=== PATIENT | male | born 1975 | race Caucasian/White ===

== ENCOUNTER 2019-01-03 19:37 | Inpatient (IN) ==
[2019-01-03 20:14] LABS: BASO# 0.07 X1000 (0.0-0.2); BASO% 0.5 % (0.0-0.8); EOS# 0.07 X1000 (0.0-0.7); EOS% 0.5 % (0.0-10.0); HEMATOCRIT 45.4 % (42.0-52.0); HEMOGLOBIN 15.6 g/dL (14.0-18.0); IMM GRAN# 0.04 X1000 (0.0-0.04); IMM GRAN% 0.3 % (0.0-0.5); LYMPH# 3.01 X1000 (1.2-3.4); LYMPH% 23.4 % (20.5-51.1); MCH 31.9 PG (27-31); MCHC 34.4 g/dL (33-37); MCV 92.8 FL (81-99); MONO# 1.03 X1000 (0.11-0.59); MPV 9.3 FL (7.4-10.4); NEUT# 8.64 X1000 (1.4-6.5); NEUT% 67.3 % (42.2-75.2); PLT 317 X1000 (130-400); RBC 4.89 XMIL (4.7-6.1); RDW 12.4 % (11.5-14.5); WBC 12.86 X1000 (4.8-10.8)
[2019-01-03] MEDS ORDERED: ROCEPHIN 2 GM in NS 50 ML IV ONE (20:19)
[2019-01-03] MEDS ORDERED: NS 500 ML IV ONE (20:19)
[2019-01-03] MEDS ORDERED: ZITHROMAX 500 MG/NS 500 MG/250 ML IVPB IV ONE (20:19)
--- NOTE | 2019-01-03 20:31 | Diag Imaging Result Doc PS360 ---
CHEST-2 VIEWS - 01/03/2019 INDICATION: sob COMPARISON: None FINDINGS: There is significant cardiomegaly and pulmonary vascular congestion. There is some interstitial pulmonary edema with curly B lines bilaterally. There are trace bilateral pleural effusions. IMPRESSION: Cardiomegaly, interstitial pulmonary edema, trace pleural effusions. Electronically signed by Erik Ortega 01/03/2019 8:29 PM
[2019-01-03 20:34] LABS: AGAP 12; ALB/GLOB RATIO 1.2; ALBUMIN 3.6 g/dL (3.5-5.0); ALKALINE PHOSPHATASE 86 U/L (32-122); BUN 14 mg/dL (8-22); CALCIUM 8.8 mg/dL (8.8-10.2); CHLORIDE 101 mmol/L (98-107); CK PROFILE 180 U/L (24-204); COSMO 275; CREATININE 1.2 mg/dL (0.7-1.2); ESTIMATED GFR > 60; GLUCOSE 111 mg/dL (70-104); GOT 32 U/L (10-34); GPT 27 U/L (10-44); POTASSIUM 5.1 mmol/L (3.5-5.1); SODIUM 137 mmol/L (136-145); TCO2 24 mmol/L (25-35); TOTAL BILIRUBIN 0.61 mg/dL (0.20-1.00); TOTAL PROTEIN 6.5 g/dL (6.3-8.3)
[2019-01-03] MEDS ORDERED: LASIX IV ONE ×2 (20:51→21:22)
[2019-01-03] MEDS ORDERED: LANOXIN IV ONE (21:23)
[2019-01-03] MEDS ORDERED: TYLENOL PO PRN (22:00)
[2019-01-03] MEDS ORDERED: ZOFRAN IV PRN (22:00)
[2019-01-03] MEDS ORDERED: LASIX 100 MG in NS 90 ML IV SCH (22:30)
[2019-01-03] MEDS: DUONEB (A & A) INH SCH (22:35)
--- NOTE | 2019-01-03 22:51 | HISTORY AND PHYSICAL ---
REASON FOR ADMISSION: One-week history of shortness of breath. Mr. Jurgen Coe is a 43-year- old, man, with past medical history of hypertension and possible borderline chronic systolic heart failure. He reports that for the last 10 days he has been having a dry chronic cough which has culminated in some mild hemoptysis over a few days ago. He also developed simultaneous one-week history of progressive shortness of breath initially with exertion, but the last 2 days at rest. Complains of PND orthopnea for the last 2 days but denies any antecedent chest pain, fever, chills. No leg swelling, but he was surprised that he had gained 5 pounds over the last 24 hours. He denies any easy satiety, abdominal distention, or facial swelling. He denies any change in his home medications. He states that 2 days ago he thought he had bronchitis and sought care in the clinic. He was given Keflex and since then he has been having nonbloody diarrhea intermittently. No abdominal pain. No complaints. REVIEW OF SYSTEMS: Twelve system was done. Positive findings per HPI. ALLERGIES: No allergies. HOME MEDICATIONS: Have not been officially reconciled. FAMILY HISTORY: Notable for diabetes and lung cancer in first-degree relatives. SOCIAL HISTORY: Smokes half pack a day and drinks 2 shots of vodka at night. No illicit drug use. PAST MEDICAL HISTORY: History also includes Crohn disease which is in remission. SURGICAL HISTORY: No surgical history. He has had multiple colonoscopies, however. LABORATORY WORK: White count 12,000. H H 15 and 45, platelets 317,000. Normal differential. BUN is 14, creatinine 1.2. Troponin is negative. ProBNP is 2000. Lactate is normal. Chest film showed cardiomegaly with history of pulmonary edema and trace pleural effusions. EKG not available for review at this time. PHYSICAL EXAMINATION: VITAL SIGNS: Blood pressure 119/89, heart rate 120, temperature is 98.7 degrees, respiration is 20. GENERAL: He is a middle-aged man, not in acute distress. He is A and O x3. Normal mood and affect. HEENT: Head is normocephalic, atraumatic. Eyes, NIKUNJ, EOMI. ENT exam is grossly normal. NECK: Supple. No JVD appreciated, but mild hepatojugular reflux. No bruit. No thyromegaly. CHEST: Bilateral crepitations diffusely in both lung braga. No wheezes and good entry in both lung braga. CARDIOVASCULAR: 1st, 2nd and 3rd heart sounds are heard. No murmurs appreciated. Rhythm is regular. ABDOMEN: Full, soft, nontender. No mass, megaly, bowel sounds are hyperactive. EXTREMITIES: The patient's distal pulses volumes are diminished in all extremities distally. Rhythm is regular. Symmetrical. No edema, clubbing or cyanosis. NEUROLOGIC: No gross focal deficits. SKIN: Intact. No breakdown, lesions. No erythema. MUSCULOSKELETAL: Exam is grossly normal. ASSESSMENT AND PLAN: 1. Acute systolic heart failure. 2. Hypertensive heart disease. 3. Tobacco use. 4. Crohn disease in remission. PLAN: Patient will be admitted and aggressive diuresis started. Gave the patient a 1-time dose of digoxin to slow heart rate down. We will consider starting patient on Entresto to decrease hospitalization and improve mortality. Low-dose beta blockers will be started and Aldactone will be started. We will consult Dr. Octaviano Harris, seen in the a.m. and echo has also been ordered. Dietary consult will be made. Smoking cessation was discussed. We will start on NicoDerm patch. cc: Meliza Lance MD [facility]
[2019-01-03] MEDS: ENTRESTO 24 MG-26 MG TABLET PO SCH (23:08)
[2019-01-03] MEDS: LOVENOX SUBQ SCH (23:08)
[2019-01-03] MEDS: COREG PO SCH (23:08)
[2019-01-04] MEDS: DUONEB (A & A) INH SCH ×4 (03:05→21:05)
[2019-01-04 06:08] LABS: CALCIUM 8.5 mg/dL (8.8-10.2); CREATININE 1.3 mg/dL (0.7-1.2); MAGNESIUM 1.8 mg/dL (1.5-2.7); POTASSIUM 3.8 mmol/L (3.5-5.1)
--- NOTE | 2019-01-04 07:17 | EKG Report ---
Test Performed on : 01/03/2019 7:43:10 PM Test Reason : sob Blood Pressure : / mmHG Vent. Rate : 131 BPM Atrial Rate : 131 BPM P-R Int : 136 ms QRS Dur : 084 ms QT Int : 314 ms P-R-T Axes : 056 085 074 degrees QTc Int : 463 ms Sinus tachycardia. Possible Left atrial enlargement Left ventricular hypertrophy Abnormal ECG When compared with ECG of 11-JUN-2015 15:52, Vent. rate has increased BY 56 BPM T wave inversion now evident in Lateral leads Unconfirmed Result
[2019-01-04] MEDS ORDERED: MAGNESIUM SULFATE 2 GM/S.W.I. 2 GM/50 ML IVPB IV ONE (08:01)
[2019-01-04] MEDS: LANOXIN PO SCH (09:05)
[2019-01-04] MEDS: ENTRESTO 24 MG-26 MG TABLET PO SCH ×2 (09:05→21:08)
[2019-01-04] MEDS: ALDACTONE PO SCH (09:05)
[2019-01-04] MEDS: COREG PO SCH ×2 (09:05→21:08)
[2019-01-04] MEDS: NICODERM PATCH TD SCH (09:06)
--- NOTE | 2019-01-04 09:35 | CARDIOLOGY CONSULTATION ---
DATE: 01/04/2019 CHIEF COMPLAINT ON PRESENTATION: Shortness of breath. HISTORY OF PRESENT ILLNESS: Mr. Coe is a 43-year-old, white male with a history of systolic heart failure. Ejection fractions in the 40 to 45 percent range most recently. For the last week to week and a half or so, he has had some mild dry cough, which he began some antibiotics for that he had at home. He had some brief improvement in the symptoms, but eventually they worsened. It has resulted in shortness of breath with talking, as well as minimal activity. He reports some weight gain but denies any lower extremity edema. He has been compliant with his heart failure medications. He ultimately was seen in a walk-in clinic. He was referred to the ER and found to have a suggestions of heart failure based on laboratories. PAST MEDICAL HISTORY: Significant for a presumed nonischemic cardiomyopathy based on stress testing. Most recent EF's in the 40 to 45 percent range. SOCIAL HISTORY: He drinks alcohol; around 2 shots of vodka at night. Smokes a half pack of cigarettes per day. No illicit drugs. FAMILY HISTORY: Father has a history of hypertension, hyperlipidemia, and diabetes. Mother with lymphoma approximately 7 years ago. REVIEW OF SYSTEMS: A 10-system review of systems is negative, except for those things mentioned in HPI. PHYSICAL EXAMINATION: Vital Signs: He is afebrile. His heart rate initially on presentation was in the 130s; subsequently has trended down into the 90s. His most recent blood pressure is 96/69. Presenting blood pressure was 117/84. His I's and O's have been significantly negative with a net negative output of 3.4 liters. General: He is in no acute distress. He is a thin white male, pleasant. HEENT: Oropharynx is moist. Normal dentition. His eye examination shows pink conjunctivae, white sclerae. Neck: Examination shows no obvious thyromegaly or thyroid tenderness. Cardiovascular: He sounds to be in a regular rate and rhythm. He has no murmurs. He has no S3. He has no lower extremity edema. Chest: Exam sounds clear. He has no increased work of breathing. Abdomen: Soft, nontender, nondistended. He has no obvious organomegaly. Skin exam: Warm and dry throughout without any rashes. Neurological: He is moving all extremities well. No lateralizing deficits. Psychiatric: Alert, oriented, pleasant. Normal mood and affect. PERTINENT DATA: His EKG shows sinus tachycardia at 130 beats per minute. He has some evidence for a left atrial enlargement, as well as left ventricular hypertrophy. No ischemic changes. No Q-waves. His chest x-ray demonstrates cardiomegaly with interstitial pulmonary edema and very minor effusions. His white count yesterday was 12.8, hematocrit 45, platelet count 317. His sodium is 143, potassium 3.8, BUN 14 and creatinine is 1.3. His Mag level was 1.8. His proBNP yesterday was 2073. Cardiac enzymes negative. His TSH is 1.9. Echocardiogram reviewed by me demonstrates a significant reduction in EF. He has a dilated left ventricle. His ejection fraction is on the order of 15%. He has findings suggestive of a bicuspid valve, but it appears to open quite well with no evidence of significant insufficiency or stenosis. ASSESSMENT: Mr. Coe is a 43-year-old, white male with a history of a presumed nonischemic cardiomyopathy based on stress testing. PLAN: His ejection fraction appears worse than previous. I agree with the hospitalist attempts to initiate Entresto. We will continue him on the spironolactone and Coreg. I will stop the Lasix as he has been diuresing quite aggressively, and switch him over to intermittent IV dosing We will give him a 20 mg IV dose later on today. I will replete his magnesium and recheck his laboratories in the morning. Hopefully, we could consider discharge in the morning. I would hold him 1 more day for titration of medications. I will have the dietitian see him. cc: MD DYLAN Dover
--- NOTE | 2019-01-04 09:54 | Diag Imaging Result Doc PS360 ---
CHEST-2 VIEWS - 01/04/2019 INDICATION: CHF COMPARISON: 01/03/2019 FINDINGS: Stable cardiomegaly and significant pulmonary vascular congestion. There has been decrease in the bilateral pleural effusions. No new infiltrates or edema. There has been decrease in the patchy linear infiltrates or atelectasis in the lung bases. IMPRESSION: Improved aeration of the lung bases. Electronically signed by Erik Ortega 01/04/2019 9:52 AM
--- NOTE | 2019-01-04 11:13 | ECHO REPORT ---
ORDER DATE: 01/03/2019 INDICATION: Congestive heart failure. FINDINGS: 1. The right atrium appears normal in size. 2. Trace tricuspid regurgitation. RV systolic pressure of 34. 3. Normal RV size with moderate reduction in RV systolic function. 4. Mild pulmonic insufficiency. 5. Mild to moderate left atrial enlargement with a volume index of 35. 6. No mitral valve prolapse. Mild mitral regurgitation. No evidence of mitral stenosis. 7. Left ventricle is dilated with an end-diastolic dimension of 6.2 cm. Normal wall thicknesses with a posterior and interventricular septal wall thickness of 0.7 and 0.9 cm respectively. Severe reduction in LV systolic function with an estimated EF in the 15 to 20 percent range with severe global hypokinesis. 8. Aortic valve opens well. It is a bicuspid valve. Trace insufficiency is noted. No significant stenosis is identified. 9. The aorta appears normal in visualized segments. There were images obtained from the suprasternal notch, which are not adequate enough. 10. No pericardial effusion is identified. cc: MD Meliza Dover MD
[2019-01-04] MEDS: NEURONTIN PO SCH ×2 (14:38→21:08)
[2019-01-04] MEDS ORDERED: LASIX IV ONE ×2 (15:00)
[2019-01-04 17:16] LABS: AGAP 14; BUN 17 mg/dL (8-22); CALCIUM 8.3 mg/dL (8.8-10.2); CHLORIDE 95 mmol/L (98-107); COSMO 275; CREATININE 1.2 mg/dL (0.7-1.2); ESTIMATED GFR > 60; GLUCOSE 130 mg/dL (70-104); POTASSIUM 3.8 mmol/L (3.5-5.1); SODIUM 136 mmol/L (136-145); TCO2 27 mmol/L (25-35)
--- NOTE | 2019-01-04 18:52 | PROGRESS NOTE ---
DATE: 01/04/2019 SUBJECTIVE: This patient is resting comfortably in bed. He is not complaining of chest pain or shortness of breath. His ejection fraction went from 40 to 45 percent to 15 to 20 percent. It has dropped significantly. It is presumed that this is non-ischemic cardiomyopathy based on stress testing. OBJECTIVE: Vital Signs: Temperature 98.6 degrees, pulse 104, respiratory rate 16, blood pressure 93/75, oxygen saturation 100% on room air. HEENT: Head normocephalic, no trauma. PERRLA. Neck: Supple. No JVD. No masses. Central trachea. Chest: Clear to auscultation. No wheezing. No rales. Cardiovascular: Regular rate and rhythm. He has a 3rd sound. Extremities: No edema, no clubbing, no cyanosis. Neurological examination: The patient is alert and oriented x3. No focal deficits. LABORATORY: Sodium 136, potassium 3.8, chloride 95, bicarbonate 27, BUN 17, creatinine 1.2, glucose 130, calcium 8.3, magnesium 1.8. ProBNP 1730. TSH 1.99. ASSESSMENT AND PLAN: 1. Congestive heart failure exacerbation. His ejection fraction has decreased significantly, now around 15 to 20 percent. We will continue with the same management. It looks like in the morning he will have a cardiac cath. 2. Known likely nonischemic cardiomyopathy. We will continue with same management. Cardiology on board. 3. History of Crohn disease, which is in remission. cc: Raji Arndt MD
[2019-01-04] MEDS: LOVENOX SUBQ SCH (21:08)
[2019-01-05] MEDS: DUONEB (A & A) INH SCH ×4 (03:05→21:18)
[2019-01-05 05:50] LABS: BASO# 0.06 X1000 (0.0-0.2); BASO% 0.5 % (0.0-0.8); EOS# 0.22 X1000 (0.0-0.7); HEMATOCRIT 50.9 % (42.0-52.0); HEMOGLOBIN 17.5 g/dL (14.0-18.0); IMM GRAN# 0.02 X1000 (0.0-0.04); IMM GRAN% 0.2 % (0.0-0.5); LYMPH# 2.53 X1000 (1.2-3.4); LYMPH% 23.2 % (20.5-51.1); MCH 31.3 PG (27-31); MCHC 34.4 g/dL (33-37); MCV 90.9 FL (81-99); MONO# 1.27 X1000 (0.11-0.59); MONO% 11.6 % (1.7-9.3); MPV 9.5 FL (7.4-10.4); NEUT# 6.81 X1000 (1.4-6.5); NEUT% 62.5 % (42.2-75.2); PLT 271 X1000 (130-400); RDW 12.4 % (11.5-14.5); WBC 10.91 X1000 (4.8-10.8)
[2019-01-05 06:19] LABS: AGAP 14; BUN 17 mg/dL (8-22); CALCIUM 8.5 mg/dL (8.8-10.2); CHLORIDE 98 mmol/L (98-107); CHOLESTEROL 141 mg/dL (0-200); COSMO 276; ESTIMATED GFR > 60; GLUCOSE 105 mg/dL (70-104); HDL 33 mg/dL (35-55); LDL 82 mg/dL; SODIUM 137 mmol/L (136-145); TCO2 25 mmol/L (25-35); TRIGLYCERIDES 131 mg/dL (39-160); VLDL 26 mg/dL
--- NOTE | 2019-01-05 06:32 | EKG Report ---
Test Performed on : 01/05/2019 06:22:49 AM Test Reason : [facility] SCHEDULED FOR AM Blood Pressure : / mmHG Vent. Rate : 101 BPM Atrial Rate : 101 BPM P-R Int : 148 ms QRS Dur : 094 ms QT Int : 374 ms P-R-T Axes : 049 041 053 degrees QTc Int : 484 ms Sinus tachycardia. with occasional premature ventricular complexes. Possible Left atrial enlargement Left ventricular hypertrophy T wave abnormality, consider lateral ischemia Abnormal ECG When compared with ECG of 03-JAN-2019 19:43, (Unconfirmed) premature ventricular complexes. are now present Nonspecific T wave abnormality now evident in Inferior leads Confirmed by Hollie VÁSQUEZ, Kermit Arevalo ([id number]) on 01/05/2019 9:45:19 AM
[2019-01-05] MEDS ORDERED: HEPARIN 1000 UNITS/NS 2,000 UNIT/1,000 ML IV.SOLN ONE (07:12)
[2019-01-05 07:13] LABS: INR 0.99; PROTIME 13.9 Seconds (11.0-16.0)
[2019-01-05] MEDS: ENTRESTO 24 MG-26 MG TABLET PO SCH ×3 (07:20→21:22)
[2019-01-05] MEDS: COREG PO SCH ×3 (07:20→21:22)
[2019-01-05] MEDS: NEURONTIN PO SCH ×4 (07:20→21:22)
[2019-01-05] MEDS: LANOXIN PO SCH ×2 (07:20→09:00)
[2019-01-05] MEDS: POTASSIUM CHLORIDE 20 MEQ/SWI 20 MEQ/100 ML IVPB IV SCH ×2 (07:21→10:01)
[2019-01-05] MEDS ORDERED: ANESTHESIA PB SET 88 IN 5742 ONE (07:38)
[2019-01-05] MEDS ORDERED: NS 1,000 ML ONE (07:38)
[2019-01-05] MEDS ORDERED: CLAVE TWINSITE 32 IN 11959 ONE (07:38)
[2019-01-05] MEDS ORDERED: VERSED ONE (07:42)
--- NOTE | 2019-01-05 08:53 | CARDIAC CATH REPORT ---
PROCEDURE NAME: - INDICATION: Systolic heart failure. PROCEDURES PERFORMED: 1. Left heart catheterization. 2. Selective coronary angiography. PROCEDURE IN DETAIL: Mr. Coe was brought to the catheterization laboratory in a fasting state. Informed consent was obtained. Prepped in the usual fashion. He was anesthetized over the right radial artery after Kermit's test proved adequate. A 5-[place] sheath was placed via true Seldinger technique. Radial cocktail was administered. Catheters were introduced. Hemodynamic measurements were made in the ascending thoracic aorta. Coronary angiography was performed in multiple views using JL3.5 and JR4 diagnostic catheters. Left heart catheterization was performed using the JR4. At the conclusion of the procedure, all sheaths and catheters were removed. TR band was left inflated at 9 mL of air with good capillary refill, good hemostasis. There were 55 mL of IV contrast and 5-10 mL of blood loss. FINDINGS: 1. The left main originates from the left coronary cusp and appears normal. 2. Left anterior descending and circumflex vessels both originate from the left main. They appear angiographically normal throughout their course. 3. The right coronary originates from the right coronary cusp. It is a large, dominant, normal vessel. 4. His aortic blood pressure is 74/48 with a mean of 58. Left ventricle pressure is 77/8 with an LVEDP of 18. ASSESSMENT: Mr. Coe is a 43-year-old male with a history of heart failure. PLAN: His coronary arteries appear normal. He is somewhat hypotensive. Currently, we will likely decrease his Entresto down to once daily. He is receiving some potassium for supplementation. We will continue him on his other medications as tolerated. Tentative plan is to proceed with ICD implantation as an inpatient after transfer to [facility]. He has diuresed well this hospitalization and his BNP is much better although LVEDP is still somewhat elevated. cc: Octaviano Harris MD [facility]
--- NOTE | 2019-01-05 08:54 | EKG Report ---
Test Performed on : 01/05/2019 08:46:31 AM Test Reason : post cath Blood Pressure : / mmHG Vent. Rate : 101 BPM Atrial Rate : 101 BPM P-R Int : 150 ms QRS Dur : 080 ms QT Int : 364 ms P-R-T Axes : 061 065 036 degrees QTc Int : 471 ms Sinus tachycardia. Possible Left atrial enlargement Left ventricular hypertrophy Nonspecific T wave abnormality Abnormal ECG When compared with ECG of 05-JAN-2019 06:22, (Unconfirmed) premature ventricular complexes. are no longer present Confirmed by Hollie VÁSQUEZ, Kermit Arevalo ([id number]) on 01/05/2019 9:45:36 AM
[2019-01-05] MEDS: NICODERM PATCH TD SCH (09:00)
[2019-01-05] MEDS: ALDACTONE PO SCH (09:01)
--- NOTE | 2019-01-05 14:35 | PROGRESS NOTE ---
DATE: 01/05/2019 SUBJECTIVE: Patient resting comfortably in bed. He is status post cardiac catheterization today. He is not complaining of any problem at this moment. Cardiac catheterization did not show any acute abnormality. His coronary arteries appear normal. I will wait for Cardiology recommendations. I think he is being evaluated for an AICD placement. OBJECTIVE: Vital Signs: Temperature 98.2, pulse 103, respiratory rate 14, blood pressure 96/71, oxygen saturation 96 on room air. HEENT: Head normocephalic. No trauma. PERRLA. Neck: Supple. No JVD. No masses. Central trachea. Chest: Clear to auscultation. No wheezing. No rales. Cardiovascular: RRR, third sound. Abdomen: Soft, nontender, nondistended. No hepatosplenomegaly. Extremities: No edema, no clubbing, no cyanosis. Neurological: The patient today is alert and oriented x3. No focal deficit. LABORATORY: WBC 10.9, hemoglobin 17.5, hematocrit 50.9, platelet 271. Sodium 137, potassium 3, chloride 98, bicarbonate 25, BUN 17, creatinine 1, glucose 105, calcium 8.5. ProBNP 427. ASSESSMENT AND PLAN: 1. Congestive heart failure exacerbation. His ejection fraction is decreased significantly, now around 15% to 30%. Will continue with the same management. He had a cardiac catheterization today that did not show any problem with his coronary arteries. I think he has been evaluated already to see if he qualifies for an AICD device. I will wait for Cardiology recommendations. He seems to be stable. 2. Likely nonischemic cardiomyopathy, as above. 3. History of Crohn's disease, which is in remission. cc: Raji Arndt MD
[2019-01-05] MEDS: LOVENOX SUBQ SCH (21:27)
[2019-01-06 03:40] VITALS: BP 85/68
[2019-01-06] MEDS: DUONEB (A & A) INH SCH (03:50)
[2019-01-06 05:19] LABS: BASO# 0.05 X1000 (0.0-0.2); BASO% 0.5 % (0.0-0.8); EOS# 0.18 X1000 (0.0-0.7); EOS% 1.7 % (0.0-10.0); HEMATOCRIT 47.9 % (42.0-52.0); HEMOGLOBIN 16.4 g/dL (14.0-18.0); LYMPH% 23.3 % (20.5-51.1); MCH 31.4 PG (27-31); MCHC 34.2 g/dL (33-37); MCV 91.6 FL (81-99); MONO# 1.23 X1000 (0.11-0.59); MONO% 11.9 % (1.7-9.3); MPV 9.4 FL (7.4-10.4); NEUT# 6.46 X1000 (1.4-6.5); NEUT% 62.6 % (42.2-75.2); PLT 286 X1000 (130-400); RBC 5.23 XMIL (4.7-6.1); RDW 12.3 % (11.5-14.5); WBC 10.32 X1000 (4.8-10.8)
[2019-01-06 05:25] LABS: PROTIME 14.1 Seconds (11.0-16.0)
[2019-01-06 05:59] LABS: AGAP 10; BUN 13 mg/dL (8-22); CALCIUM 8.6 mg/dL (8.8-10.2); CHLORIDE 104 mmol/L (98-107); COSMO 276; ESTIMATED GFR > 60; GLUCOSE 106 mg/dL (70-104); POTASSIUM 3.9 mmol/L (3.5-5.1); SODIUM 138 mmol/L (136-145); TCO2 24 mmol/L (25-35)
--- NOTE | 2019-01-07 06:27 | DISCHARGE SUMMARY ---
ADMISSION DATE: 01/03/2019 DISCHARGE DATE: 01/06/2019 DISCHARGE DIAGNOSES: 1. Normal right ventricular size and moderate reduction of right ventricular systolic function. 2. Chest x-ray dated 01/03/2019. Impression: Cardiomegaly, interstitial pulmonary edema and trace pleural effusion. 3. Cardiac cath dated 01/05/2019. Impression: Coronary arteries appear normal. HOSPITAL COURSE: A 43-year-old male with a past medical history of nonischemic cardiomyopathy and systolic heart failure, presented to the emergency department and was admitted on 01/03/2019 due to shortness of breath for 1 week. He reported that he was having dry cough which has culminated in some mild hemoptysis over a few days ago. He also developed shortness of breath, and for the past 2 days even at rest complains of paroxysmal nocturnal dyspnea and orthopnea also for the past 2 days. He denies any problem with chest pain, fever, chills, not leg swelling, but he has been getting weight. He denies any early satiety, abdominal distention, or facial swelling. No change in his home medication. He received Keflex a couple of days ago because he thought he had bronchitis. Also, he has been having non bloody diarrhea. No abdominal pain or genitourinary complaints. We did an echocardiogram that showed an ejection fraction of 15 to 20 percent, which reviews compared with his previous echocardiogram. Cardiology Department evaluated this patient, and they adjusted his medications. They decided to go ahead and do a cardiac cath that did not show any abnormality. After that, he was evaluated by a team to see if he qualified for an AICD placement. He was feeling completely fine today so we decided to discharge this patient. He will follow up with his primary hand roller for further treatment. No symptoms today. PHYSICAL EXAMINATION: Vital signs: Temperature 98.2 degrees, pulse 93, respiratory rate 20, blood pressure 85/68, and oxygen saturation 93 on room air. HEENT: Head normocephalic. No trauma. PERRLA. Neck: Supple. No JVD. No masses. Central trachea. Chest: Clear to auscultation. No wheezing. No rales. Cardiovascular: RRR. Third sound. Abdomen: Soft, nontender, and nondistended. No hepatosplenomegaly. Extremities: No edema. No clubbing. No cyanosis. Neurological: The patient is alert and oriented x3. No focal deficits. LABORATORY: WBC 10.33, hemoglobin 16.4, hematocrit 47.9, and platelets 286,000. Sodium 139, potassium 3.9, chloride 104, bicarbonate 24, BUN 13, creatinine 1, glucose 106, calcium 8.6, and magnesium 1.9. DISCHARGE MEDICATIONS: 1. Coreg 3.1 25 mg p.o. b.i.d. 2. Gabapentin 300 mg p.o. t.i.d. 3. Lisinopril 5 mg p.o. daily. 4. Spironolactone 25 mg p.o. daily. Medication has been prescribed by Cardiology Department. TIME SPENT: Time discharging this patient 20 minutes. cc: Raji Arndt MD
--- NOTE | 2019-01-08 05:06 | PROVIDER DOCUMENTATION ---
This chart was entered by Umm Zacarias Scribe, acting as scribe for Bruno Morales MD. HPI-Respiratory General - General Chief Complaint: SEPSIS ALERT - D Stated Complaint: SOB/HISTORY OF HEART PROBLEMS Time Seen by Provider: 01/03/19 19:57 Source: patient Allergies/Adverse Reactions: Patient Allergies Allergy/AdvReac Type Severity Reaction Status Date / Time No Known Allergies Allergy Verified 06/11/15 14:42 Home Medications: Home Medication List Medication Instructions Recorded Confirmed Last Taken Type Carvedilol [Coreg] 3.125 mg PO BID 06/11/15 01/03/19 Unknown History Gabapentin 300 mg PO TID 06/11/15 01/03/19 Unknown History LISINOpril [Prinivil] 5 mg PO DAILY 06/11/15 01/03/19 Unknown History Spironolactone 25 mg PO DAILY 06/11/15 01/03/19 Unknown History - History of Present Illness-Resp Nature of Presenting Problem: 43 yom c/o productive cough w/bloody sputum, sob and lightheaded. pt sts cough started 2 wks ago, took cough meds and felt better. 1 wk ago cough started again and started coughing up blood and becoming sob at night. pt sts after lunch, become sob at work. pt sts he works in hot most of the day. pt is a smoker and drinks alcohol regularly. pt has hx of CHF w/no tx, chrons dx (sts in remission). pt denies steroids and fever. Review of Systems - Adult - REVIEW OF SYSTEMS - ADULT Constitutional: reports: no symptoms reported Eyes: reports: no symptoms reported Ears, Nose, Mouth & Throat: reports: no symptoms reported Cardiovascular: reports: no symptoms reported Respiratory: reports: see HPI, cough, excessive sputum production, hemoptysis, shortness of breath. denies: pleurisy, wheezing Gastrointestinal: reports: no symptoms reported Genitourinary: reports: no symptoms reported Musculoskeletal: reports: no symptoms reported Integumentary: reports: no symptoms reported Neurological: reports: no symptoms reported Psychiatric: reports: no symptoms reported Endocrine: reports: no symptoms reported Hematologic/Lymphatic: reports: no symptoms reported Allergic/Immunologic: reports: no symptoms reported All Other Systems: Reviewed and Negative Past History - Adult - PAST MEDICAL HISTORY-ADULT Review of Records: reports: Old Records Reviewed, Nursing Assessment Review, Medications Reviewed, Social history reviewed & non-contributory. Major Childhood Illnesses: reports: denies history Cardiovascular: reports: CHF Respiratory: reports: denies history Gastrointestinal: reports: Crohn's Obstetrical/Gynecological: reports: denies history Genitourinary: reports: denies history Musculoskeletal: reports: denies history Neurological: reports: denies history Endocrine/Immune: reports: denies history Other Conditions: reports: denies history - IMMUNIZATION STATUS Childhood Immunizations: See Nurse Assessment Flu Vaccine: See Nurse Assessment - FAMILY HISTORY Family History: reviewed, not pertinent - SOCIAL HISTORY Smoking: cigarettes, less than 1 pack/day Provider spent 3-5 mins advising pt. on dangers of tobacco.: Discussed manners to quit use, and f/u contacts for add'l counseling. Substance Use: alcohol Alcohol Use Frequency: every day Physical Exam-General - PHYSICAL EXAM-ADULT Initial Vital Signs Reviewed: Yes - CONSTITUTIONAL General Appearance: alert, mild distress. negative: slow to respond, obtunded, combative - EYES Eyes: PERRL/EOMI, pink conjunctivae - HEAD, EARS, NOSE, MOUTH & THROAT HENMT: normocephalic/atraumatic, moist mucous membranes - NECK Neck: non-tender, full range of motion, supple, normal inspection - RESPIRATORY Respiratory: chest non-tender, lungs clear, normal breath sounds, no pleuratic chest pain, no respiratory distress, no accessory muscle use. negative: respiratory distress, decreased breath sounds, prolonged expiration - CARDIOVASCULAR Cardiovascular: normal peripheral pulses, no edema, no gallop, no JVD, no murmur , tachycardia. negative: regular rate, rhythm, JVD, bradycardia - GASTROINTESTINAL (ABDOMEN) Abdominal Exam: normal bowel sounds, non tender, soft - MUSCULOSKELETAL Back Exam: normal inspection, no CVA tenderness, no vertebral tenderness Extremity: normal range of motion, non-tender, normal inspection - SKIN Integumentary: normal color, normal turgor, warm/dry - NEUROLOGIC Neurologic: grossly normal, no motor/sensory deficits - PSYCHIATRIC Psych/Mental Status: normal mood/affect, normal thought content, normal thought process, oriented x 3 Progress - PLAN OF CARE/RESULTS Progress/Plan/Lab Results: Orders Category Date Time Status Admit - [facility] Routine AdmDCTranf 01/03/19 22:00 Active Activity - Up with Assistance ORDERED Care 01/03/19 22:00 Active Cardiac Monitoring DIRECTED Care 01/03/19 22:00 Completed IV Insertion ORDERED Care 01/03/19 22:00 Completed Intake and Output-Strict Q 8-HR ASSESS Care 01/03/19 22:00 Active Notify MD of + Sepsis Screen NOW Care 01/03/19 22:00 Completed Nursing- MD Consult Request [id number] Care 01/03/19 22:00 Completed Vital Signs Order Q 8-HR ASSESS Care 01/03/19 22:00 Completed Z-Document. for Tele Applied ORDERED Care 01/03/19 22:00 Completed Physician/Provider Consults Routine Cons 01/03/19 22:00 Ordered Heart Healthy Diet Diet 01/03/19 22:01 Completed CHEST-2 VIEWS [RAD] Routine Exams 01/04/19 06:00 Completed CHEST-2 VIEWS [RAD] Stat Exams 01/03/19 19:44 Completed BASIC METABOLIC PANEL [CHEM] Routine Lab 01/04/19 05:00 Completed BLOOD CULTURE [BLDCUL] Stat Lab 01/03/19 20:35 Results CBC WITH ELECTRONIC DIFF [HEME] Stat Lab 01/03/19 19:55 Completed CK PROFILE [SP CHEM] Stat Lab 01/03/19 19:55 Completed COMPREHENSIVE METABOLIC PANEL [CHEM] Stat Lab 01/03/19 19:55 Completed LACTATE, PLASMA [CHEM] Stat Lab 01/03/19 19:55 Completed MAGNESIUM [CHEM] Routine Lab 01/04/19 05:00 Completed PRO B-NATRIURETIC PEPTIDE Stat Lab 01/03/19 19:55 Completed TROPONIN T Stat Lab 01/03/19 19:55 Completed TSH Routine Lab 01/04/19 05:00 Completed 0.9% Sodium Chloride Inj [Ns] 500 ml Med 01/03/19 20:19 Discontinued IV 999 mls/hr 0.9% Sodium Chloride Inj [Ns] 90 ml Med 01/03/19 22:30 Discontinued Furosemide [Lasix] 100 mg IV 5 mg/hr Acetaminophen [Tylenol] Med 01/03/19 22:00 Discontinued 650 mg PO Q6H PRN PRN Albuterol 2.5MG/Ipratrop 0.5MG [Duoneb (A & A)] Med 01/03/19 22:00 Discontinued 3 ml INH RTQ6H Azithromycin 500 mg/Ns [Zithromax 500 mg/Ns] Med 01/03/19 20:19 Discontinued 500 mg in 250 ml IV NOW Carvedilol [Coreg] Med 01/03/19 21:00 Discontinued 3.125 mg PO BID CefTRIAXONE [Rocephin] 2 gm Med 01/03/19 20:19 Discontinued 0.9% Sodium Chloride Inj [Ns] 50 ml IV NOW Digoxin [Lanoxin] Med 01/03/19 21:23 Discontinued 250 microgm IV NOW ONE Enoxaparin [Lovenox] Med 01/03/19 22:00 Discontinued 40 mg SUBQ Q24H Furosemide [Lasix] Med 01/03/19 20:51 Discontinued 20 mg IV NOW ONE Furosemide [Lasix] Med 01/03/19 21:22 Discontinued 20 mg IV NOW ONE Ondansetron [Zofran] Med 01/03/19 22:00 Discontinued 4 mg IV Q4H PRN PRN Sacubitril/Valsartan [Entresto 24 mg-26 mg Tablet] Med 01/03/19 21:00 Discontinued 1 each PO BID Spironolactone [Aldactone] Med 01/04/19 09:00 Discontinued 12.5 mg PO DAILY Aerosol Treatments Routine Oth 01/03/19 22:00 Completed Aerosol Treatments Stat Oth 01/03/19 22:00 Completed Oxygen Device Stat Oth 01/03/19 22:00 Completed Telemetry [OM.EQ] Routine Oth 01/03/19 22:00 Active EKG [EKG] Stat Ther 01/03/19 19:39 Draft Echo Spec/Color Doppler Routine Ther 01/03/19 22:00 Completed Transfer/Admit Order [TRANSFER] Routine Transfer 01/03/19 21:00 Completed Result Diagrams: 01/06/19 04:40 01/06/19 04:40 - EKG 1 Time of EKG reading by physician:: 19:43 EKG Read and Signed by:: Bruno Morales EKG Interpretation (*Must complete 3 of following elements*): Abnormal Rate: 131 (possible left atrial enlargement ) Rhythm: ST [place]: normal QRS: [facility] [place] Interval: normal ST Wave: normal - XRAY 1 XRAY Study: Chest ( CHEST-2 VIEWS - 01/03/2019 INDICATION: sob COMPARISON: None FINDINGS: There is significant cardiomegaly and pulmonary vascular congestion. There is some interstitial pulmonary edema with curly B lines bilaterally. There are trace bilateral pleural effusions. IMPRESSION: Cardiomegaly, interstitial pulmonary edema, trace pleural effusions. El ectronically signed by Erik Ortega 01/03/2019 8:29 PM) Impression: Abnormal Departure - Departure Date of Disposition Decision: 01/03/19 Time of Disposition Decision: 22:00 DIAGNOSIS: Shortness of breath Disposition: ADMITTED INPATIENT 09 Certified Medical Emergency: Emergent Condition: Good - Critical Care Note This patient required my direct & personal management of CC.: No Attestation - Physician/ CELESTE Attestation The physician spent face to face time with patient:: Yes Advanced Practice Provider documentation review:: Supervising physician onsite and consulted in the evaluation and care of this patient. The physician did have a face to face encounter with the patient. This chart was documented by the indicated scribe, (Umm Zacarias, [email or web address]) and accurately reflects the services I performed and decisions made by me, Bruno Morales MD, as attested by the provider's signature.
== END 2019-01-06 07:35 | disposition short-term general hospital (02) | DRG 287 ==
LOC: ED 19:37 → 3S 21:48 → SUATTDRO 21:48
PROVIDERS: ATTEND Internal Medicine
CPT/HCPCS: 71020; 71046; 80048; 80053; 80061; 82550; 83605; 83735; 83880; 84443; 84484; 85025; 85610; 87040; 93005; 93010; 93306; 93458; 94640; 94761; 96365; 96366; 96368; 96375; 99285; A9270; J0456; J0696; J1160; J1644; J1650; J1940; J2250; J3475; J3480; J7030; J7040; Q9967